=== PATIENT | female | born 1935 | race Hispanic/Latino ===

== ENCOUNTER 2022-10-09 10:58 | Emergency (ER) | payer OTHER ==
--- OUTSIDE RECORDS SUMMARY | 2022-10-09 11:02 | XMS REPORT | Continuity of Care Document ---
:1935 Author Organization [facility] t Address [address] [place] [address] Care Team Providers Name Role Phone Carter Oseguera Attending Clinician Unavailable Christie De La Paz Attending Clinician Unavailable Colin Fields Attending Clinician Unavailable Ruchi Sheets Admitting Clinician Unavailable Carter Oseguera Admitting Clinician Unavailable Payers Payer Name Policy Type Policy Number Effective Date Expiration Date S ource Problems This patient has no known problems. Allergies, Adverse Reactions, Alerts Allergy Allergy Status Severity Reaction(s) Onset Inactive Treating Comm ents Source Name Type Date Date Clinician No Known DA Active U 2021-0 [facility] -05 [facility] No Known DA Active U 2020-0 [facility] Allergie 09-15 [facility] No Known DA Active U 2020- [facility] Allergie 09-15 [facility] No Known DA Active U 2016-0 [facility] All[facility]ie - [facility] Medications This patient has no known medications. Procedures This patient has no known procedures. Encounters Start End Encounter Admission Attending Care Care Encounter Source Date/Time Date/Time Type Type Clinicians Facility Department ID 2020-09-18 Inpatient HCARG HC[facility] [id number] [facility] 21:24:09 90 [facility] 2020-09-15 Inpatient HCARG HCARG [id number] [facility] 00:25:15 69 [facility] 2022-07-06 2022-07-08 Inpatient EM Oumar HCARG [id number] [facility] 14:30:00 14:35:00 Carter 04 [facility] 2021-11-26 2021-11-26 Emergency EM Brain HCARG ER [id number] [facility] 21:55:00 23:34:00 Christie 54 [facility] n[facility]al[facility] 2021-11-26 2021-11-26 Emergency EM Brain HCARG HCARG [id number] [facility] 21:55:00 23:34:00 Christie [id number] [facility] nathalie [facility] 2021-01-10 2021-01-10 Emergency EM Donnie HCARG ER [id number] [facility] 21:26:00 23:11:00 Colin 15 [facility] Results Test Description Test Time Test Comments Results Result Comments Source CBC W/AUTO DIFF 2022-07-07 13:11:00 Test Item Value Reference Range Interpretation Comme nts WHITE BLOOD CELL (test code = 4.3 X10(3) 4.5-11.0 L WBC) RED BLOOD CELL (test code = 2.95 X10(6) 4.2-5.4 L RBC) HEMOGLOBIN (test code = HGB) 6.5 g/dL 12.5-16.0 LL VALUE EXCEEDS CRITICAL LEVEL. CRITICAL VALUE CALLEDTO AND CR ITICAL VALUE READ BACK BY JOEL MICHAEL,RN 1 215 07/07/22. Jared Nelson HEMATOCRIT (test code = HCT) 22.8 % 37.0-47.0 L MEAN CELL VOLUME (test code = 77.3 fl 78-100 L MCV) MEAN CELL HGB (test code = MCH) 22.0 pg 26.0-34.0 L MEAN CELL HGB CONCETRATION 28.5 g/dl 30.0-37.0 L (test code = MCHC) RED CELL DISTRIBUTION WIDTH 16.4 % 11.5-14.5 H (test code = RDW) PLATELET COUNT (test code = 231 X10(3) 150-350 N PLT) MEAN PLATELET VOLUME (test code 10.1 fl 8.7-11.4 N = MPV) NUCLEATED RBC % (test code = 0.0 % 0-0.2 N NRBC%) NUCLEATED RBC # (test code = 0.00 K/mm3 0.0-0.1 N NRBC#) SEGMENTED NEUTROPHILS (test 71 % 36-66 H code = SEG) BAND NEUTROPHIL (test code = 0 % 5-11 L BAND) LYMPHOCYTE (test code = LYMPH) 11 % 16-50 L MONOCYTE (test code = MON) 4 % 0-13 N EOSINOPHIL (test code = EOS) 14 % 0-4.5 H BASOPHIL (test code = BASO) 0 % 0-1.5 N BAND ABSOLUTE (test code = 0.00 X10(3) 0.0-0.7 N BAND#) NEUTROPHIL ABSOLUTE (test code 3.06 X10(3) 1.7-7.7 N = NEUTR#) LYMPH ABSOLUTE (test code = 0.47 X10(3) 0.7-4.0 L LYMPH#) MONOCYTE ABSOLUTE (test code = 0.17 X10(3) 0.0-0.89 N MON#) BASOPHIL ABSOLUTE (test code = 0.00 X10(3) BASO#) EOSINOPHIL ABSOLUTE (test code 0.60 X10(3) 0.0-0.6 N = EOS#) HYPOCHROMIA (test code = HYPO) 1+ NOT PRESENT ANISOCYTOSIS (test code = 1+ NOT PRESENT ANISO) MICROCYTOSIS (test code = MICR) 1+ NOT PRESENT PLATELET ESTIMATE (test code = NORMAL ADEQUATE PLTEST) OTHER SPECIMEN [id number] 17:35:00 Test Item Value Reference Range Interpretation Comments OTHER SPECIMEN TYPES (test code = OTH) RUN DATE: 07/06/22 [facility] LAB LIVE PAGE 1 RUN TIME: 1735 Specimen Inquiry RUN USER: INTERFACE PATIENT: CARLOS PALOMARES LOC: ERIKA U #: [id number] AGE/SX: 86/F ROOM: [facility] RE07/06/22REG DR: Porter Schaefer MD : 37 BED: B DIS: STATUS: ADM Zak TLOC: SPEC #: [id number] RECD: 07/06/22 STATUS: MIRTA [facility] #: [id number] ERMIAS: - SUBM DR: Lana Mora MD ENTERED: 07/06/22 SP TYPE: OTHER OTHR DR: Self Referred Ruchi Sheets APN, Hiram L MDORDERED: PATHOLOGY REVIE CODES: [id number] - BLOOD CELL, NOS COPIES TO: Self Referred Ruchi Sheets APN [address] [facility] [place] [address] [place] [address] Andrew Perez MD [address] [facility] [address] [place] [address] [place] [address] [place] [place] [address] PROCEDURES: PATHOLOGY REVIE (07/06/22-6548) TISSUES: B. BLOOD CELL, NOS - PERIPHERAL BLOOD MORPHOLOGY Signed SIGNATURE ON FILE Jared Mendez 07/06/22 1735 END OF REPORT CBC W/AUTO [id number] 14:23:00 Test Item Value Reference Range Interpretation Comments WHITE BLOOD CELL (test 5.1 X10(3) 4.5-11.0 N code = WBC) RED BLOOD CELL (test 2.78 X10(6) 4.2-5.4 L code = RBC) HEMOGLOBIN (test code = 6.1 g/dL 12.5-16.0 LL VALU E EXCEEDS HGB) CRITICAL LEVEL. CRITICAL VALUE CALLEDTO AND CRITICAL VALUE READ BACK BY MERISSA WOLFE RN 1681 07/06/22. Jeff Watters HEMATOCRIT (test code = 21.7 % 37.0-47.0 L HCT) MEAN CELL VOLUME (test 78.1 fl 78-100 N code = MCV) MEAN CELL HGB (test code 21.9 pg 26.0-34.0 L = MCH) MEAN CELL HGB 28.1 g/dl 30.0-37.0 L CONCETRATION (test code = MCHC) RED CELL DISTRIBUTION 16.3 % 11.5-14.5 H WIDTH (test code = RDW) PLATELET COUNT (test 268 X10(3) 150-350 N code = PLT) MEAN PLATELET VOLUME 10.8 fl 8.7-11.4 N (test code = MPV) NUCLEATED RBC % (test 0.0 % 0-0.2 N code = NRBC%) NUCLEATED RBC # (test 0.00 K/mm3 0.0-0.1 N code = NRBC#) GIANT PLATELETS (test PRESENT NORMAL code = PLTG) SEGMENTED NEUTROPHILS 79 % 36-66 H (test code = SEG) BAND NEUTROPHIL (test 1 % 5-11 L code = BAND) LYMPHOCYTE (test code = 15 % 16-50 L LYMPH) MONOCYTE (test code = 0 % 0-13 N MON) EOSINOPHIL (test code = 5 % 0-4.5 H EOS) BASOPHIL (test code = 0 % 0-1.5 N BASO) BAND ABSOLUTE (test code 0.05 X10(3) 0.0-0.7 N = BAND#) NEUTROPHIL ABSOLUTE 4.04 X10(3) 1.7-7.7 N (test code = NEUTR#) LYMPH ABSOLUTE (test 0.77 X10(3) 0.7-4.0 N code = LYMPH#) MONOCYTE ABSOLUTE (test 0.00 X10(3) 0.0-0.89 N code = MON#) BASOPHIL ABSOLUTE (test 0.00 X10(3) code = BASO#) EOSINOPHIL ABSOLUTE 0.26 X10(3) 0.0-0.6 N (test code = EOS#) HYPOCHROMIA (test code = 1+ NOT PRESENT HYPO) POIKILOCYTOSIS (test 1+ NOT PRESENT code = POIK) ANISOCYTOSIS (test code 1+ NOT PRESENT = ANISO) MICROCYTOSIS (test code 1+ NOT PRESENT = MICR) PLATELET ESTIMATE (test NORMAL ADEQUATE code = PLTEST) IMMATURE PLATELET [id number] 14:23:00 Test Item Value Reference Range Interpretation Comments IMMATURE PLATELET FRACTION (test code = 5.3 % 0.9-11.2 N IPF) RETIC COUNT (AUTOMATED)2022-07-06 14:23:00 Test Item Value Reference Range Interpretation Comments RETIC COUNT (AUTOMATED) (test code = 1.9 % 0.5-2.7 N RETICA) IMMATURE RETICULOCYTE [id number] 14:23:00 Test Item Value Reference Range Interpretation Comments IMMATURE RETICULOCYTE FRACTION (test 17.7 % 3.0-15.9 H code = IRF) RETICULOCYTE HGB [id number] 14:23:00 Test Item Value Reference Range Interpretation Comments RETICULOCYTE HGB EQUIVALENT (test 17.5 pg 28.2-35.7 L code = RETHE) SMEAR PERIPHERAL [id number] 14:23:00 Test Item Value Reference Range Interpretation Comments SMEAR PERIPHERAL BLOOD SEE PATHOLOGIST REPT (test code = BLDSM) BASIC METABOLIC [id number] 14:05:00 Test Item Value Reference Range Interpretation Comments SODIUM (test code = 141 mmol/L 136-145 N NA) POTASSIUM (test code 3.9 mmol/L 3.5-5.1 N = K) CHLORIDE (test code 111 mmol/L 98-107 H = CL) CARBON DIOXIDE (test 23 mmol/L 21-32 N code = CO2) GLUCOSE (test code = 112 mg/dL 70-100 H GLU) BLOOD UREA NITROGEN 13 mg/dL 7-18 N (test code = BUN) GLOMERULAR > 60.00 See_Comment Reporting units : FILTRATION RATE mL/min/1.73m \S\2 (test code = GFR) (Modified MDRD formula)REFEREN CE RANGE: > or = 6 0 ml/min/1.73M2IF PATIENT IS -AMER ICAN, MULTIPLY REPORT ED RESULT BY1.21.T he Glomerular Filt ration Rate is a calcu lated parameterbased on serum Creatinine, pat ient age and sex. GFR va luesless than 60 mL/min/ 1.73 square meters a re indicative ofCh ronic Kidney Disease. Values less than 15 mL/min/1.73squa re meters indicate Kidney failure. The calculation for GFR is based on the CK D-EPI (2020) calculat ion. This formulais race indifferent and is the recommended for spike for GFRby the Natio nal Kidney Foundati on for Adults.The GFR will not calculate if th e sex is unknown or if thepatient's ag e is <18 years. [Automat ed message] The sy stem which generated this result transmit jarad reference range : >=60. The reference r lourdes was not used to int erpret this result as normal/abnormal . CREATININE (test 0.68 mg/dL 0.51-0.95 N code = CREAT) CALCIUM (test code = 8.5 mg/dL 8.5-10.1 N CA) LIVER [id number] 14:05:00 Test Item Value Reference Range Interpretation Comments TOTAL PROTEIN (test code = PROT) 6.3 g/dl 6.4-8.2 L ALBUMIN (test code = ALB) 3.3 g/dl 3.4-5.0 L BILIRUBIN TOTAL (test code = BILT) 0.4 mg/dl 0.2-1.0 N BILIRUBIN DIRECT (test code = 0.13 mg/dl 0.0-0.4 N BILD) SGOT/AST (test code = AST) 16 U/L 15-37 N SGPT/ALT (test code = ALT) 19 U/L 12-78 N ALKALINE PHOSPHATASE TOTAL (test 89 U/L 50-136 N code = ALKP) [id number] 14:05:00 Test Item Value Reference Range Interpretation Comments LIPASE (test code = LIP) 89 U/L 73-393 N [id number] 14:05:00 Test Item Value Reference Range Interpretation Comments AMMONIA (test code = AMM) 33 umol/L 11-32 H TROPI (HIGH SENSITIVITY)2022-07-06 14:05:00 Test Item Value Reference Range Interpretation Comments TROPI (HIGH 7 pg/ml See_Comment N HIGH SENSITIVI TY TROPONIN SENSITIVITY) (test MEASUREME NT/RANGES--------- code = TROPI) ---------Ass ay : Units : No rmal : Risk Stratification : High : : (Detectable : Limit(Suggestiv e of : AboveTNIH : : L imit) : sequential test ing) : 99th : : : : % ile --------FEMALES : pg/ml : <= 3.0 : 3.1 - 54 : >54 --------MALES : pg/ml : <= 3.0 : 3.1 - 78 : >78 --------- [Auto mated message] The sy stem which generated this result transmitted ref erence range: <=3.0. T he reference range was not u sed to interpret this result as normal/abnormal . TOTAL IRON BINDING [id number] 14:05:00 Test Item Value Reference Range Interpretation Comments SERUM IRON (test code = IRON) 13 ug/dl 50-170 L TOTAL IRON BINDING CAPACITY (test 475 ug/dl 250-450 H code = TIBC) IRON SATURATION (test code = FESAT) 3 % 20-50 L PROTHROMBIN [id number] 13:48:00 Test Item Value Reference Interpretation Comments Range PROTHROMBIN TIME 10.4 SECONDS 8.7-12.1 N THERAPEUTIC LEVEL: 1.5 TO PATIENT (test code 1.9 TIMES NORMAL RANGE = PTP) INTERNATIONAL 1.0 Recommended erapeutic NORMAL RATIO (test PT Ratios For Oral code = INR) [facility] erapy. CONDITION INT'L NORMALIZED PT RATIO Prophylaxis of venous thrombosis 2.0 - 3.0in high risk medic al or surgicalpatient s, treatment of venousthrombosi s, prevention of e mbolism. Prevention of r ecurrent embolism, 2.5 - 3.5or treatment of pa tients with mechanical prosthetic heart valves. THROMBOPLASTIN TIME [id number] 13:48:00 Test Item Value Reference Range Interpretation Comments THROMBOPLASTIN TIME PARTIAL 24.3 seconds 22.8-34.4 N (test code = PTT) - XR CHEST 1 [id number] 13:42:00 [facility] : 1935 Sex: F [facility] Name: CARLOS PALOMARES [address] Phys: Lana Mora MD [place], [place] [address] : 1935 Age: 86 Sex: F Acct: [id number] Loc: [facility] PHONE #: [phone] Exam Date: 07/06/2022 Status: PRE ER FAX #: [phone] Radiology No: Unit No: [id number] Reason: Abd pain EXAMS: CPT CODE: [id number] XR CHEST 1 V 60038 Fluoro Time: DAP (Gy m2): Air Kerma (mGy): EXAM: - XRCHEST 1 V Location code:C3 HISTORY: Abd pain COMPARISON: 01/10/2021 FINDINGS: Single AP view of the chest is provided. Scarring at the right lung apex is again seen. Heart size and vascularity are within normal limits. The lungs are clear of focal consolidation. No effusion, pneumothorax, or acute osseous abnormality. IMPRESSION: 1. No radiographic evidence of acute cardiopulmonary process. at 1342 Reported and signed by: NATA URBINA M.D. CC: Ruchi Sheets; Andrew Perez MD; Lana Mora MD Technologist: Shanice Fields, RT (R) Transcribed Date/Time: 07/06/2022 (6612) [email or web address] Orig Print D/T: S: 07/06/2022 (9430) PAGE 1 Signed ReportCOVID 19 Asymptomatic IH [id number] 13:40:00 Test Item Value Reference Interpretation Comments Range COVID 19 Presumed NEGATIVE CHERELLE COVID-19 Asymptomatic IH AG Negative --------- ------Results (test code = are for the COVNONPUIAG) identification of QKFR-XyM-1jbjcb ocapsid protein antigen . Antigen is generallydet ectable in upper respir atory specimens durin g the acutephase of i nfection. Positive result s indicate the pr esenceof viral antigens, but clinical correl ation with patienthis tory and other diagnosti c information is necessary todetermine inf ection status. Negativ e results should be treat ed as presumptive and confirmed with a molecula r assay, if necessary fo r patientmanageme nt. Negative result s do not rule out COVID- 19 andshould not b e used as the sole basis for treatment orpat ient management deci sions, including infec tion controldecision s. Negative result s should be considered i n thecontext of a patient's recen t exposures, hist ory and thepresence of clinical signs and sympt oms consistent with COVID-19. The Cherelle SARS Antigen AMERICO is only for use under the Fooda nd Drug Administration' s Emergency Use Authorization. COMPREHENSIVE METABOLIC [id number] 22:57:00 Test Item Value Reference Range Interpretation Comments SODIUM (test code = 135 mmol/L 136-145 L NA) POTASSIUM (test code = 3.6 mmol/L 3.5-5.1 N K) CHLORIDE (test code = 103 mmol/L 98-107 N CL) CARBON DIOXIDE (test 21 mmol/L 21-32 N code = CO2) GLUCOSE (test code = 149 mg/dL 70-100 H GLU) BLOOD UREA NITROGEN 8 mg/dL 7-18 N (test code = BUN) GLOMERULAR FILTRATION 54.07 See_Comment L Report ing units: RATE (test code = GFR) mL/mi n/1.73m\S\2 (Modified MDRD formula)REFEREN CE RANGE: > or = 6 0 ml/min/1.73M2IF PATIENT IS -FLORA N, MULTIPLY REPORT ED RESULT BY1.21. [Automated mess age] The system [employer] generated this result transmitted ref erence range: >=60. Th e reference range was not used to int erpret this result as normal/abnormal . CREATININE (test code 0.98 mg/dl 0.55-1.02 N = CREAT) TOTAL PROTEIN (test 7.5 g/dl 6.4-8.2 N code = PROT) ALBUMIN (test code = 4.2 g/dl 3.4-5.0 N ALB) CALCIUM (test code = 9.3 mg/dL 8.5-10.1 N CA) BILIRUBIN TOTAL (test 0.6 mg/dL 0.2-1.0 N code = BILT) SGOT/AST (test code = 22 U/L 15-37 N AST) SGPT/ALT (test code = 27 U/L 12-78 N ALT) ALKALINE PHOSPHATASE 124 U/L 45-117 H TOTAL (test code = ALKP) CBC W/AUTO [id number] 22:42:00 Test Item Value Reference Range Interpretation Comments WHITE BLOOD CELL (test code = 6.9 X10(3) 4.5-11.0 N WBC) RED BLOOD CELL (test code = 4.21 X10(6) 4.2-5.4 N RBC) HEMOGLOBIN (test code = HGB) 10.4 g/dL 12.5-16.0 L HEMATOCRIT (test code = HCT) 34.3 % 37.0-47.0 L MEAN CELL VOLUME (test code = 81.5 fL 78-100 N MCV) MEAN CELL HGB (test code = MCH) 24.7 pg 26.0-34.0 L MEAN CELL HGB CONCETRATION 30.3 g/dl 30.0-37.0 N (test code = MCHC) RED CELL DISTRIBUTION WIDTH 17.2 % 11.5-14.5 H (test code = RDW) PLATELET COUNT (test code = 229 X10(3) 150-350 N PLT) MEAN PLATELET VOLUME (test code 10.1 fl 8.7-11.4 N = MPV) NEUTROPHIL % (test code = NT%) 64.1 % 36.0-66.0 N IMMATURE GRANULOCYTE % (test 0.3 % 0.0-2.0 N code = IG%) LYMPHOCYTE % (test code = LY%) 23.5 % 16-50 N MONOCYTE % (test code = MO%) 6.6 % 0.0-13.0 N EOSINOPHIL % (test code = EO%) 5.1 % 0.0-4.5 H BASOPHIL % (test code = BA%) 0.4 % 0.0-1.5 N NEUTROPHIL # (test code = NT#) 4.4 X10(3) 1.7-7.7 N IMMATURE GRANULOCYTE # (test 0.02 X10(3)uL 0.00-0.03 N code = IG#) LYMPHOCYTE # (test code = LY#) 1.6 X10(3) 1.0-4.8 N MONOCYTE # (test code = MO#) 0.5 X10(3) 0.0-0.89 N EOSINOPHIL # (test code = EO#) 0.4 X10(3) 0.0-0.6 N BASOPHIL # (test code = BA#) 0.0 X10(3) 0.0-0.2 N RBC MORPHOLOGY REQUIRED (test NO NORMAL code = RBCM) - CT C-SPINE W/O [id number] 22:42:00 [facility] 1935 [facility] 1935 Age/S: 85 / F [address] Unit #: [id number] Loc: [place], [place] [address] Phys: Colin Fields MD Acct: [id number] Dis Date:Status: REG ER PHONE #: [phone] Exam Date: 01/10/20212228 FAX #: [phone] Reason: FALL, HE ADACHE EXAMS: CPT CODE: [id number] CT C-SPINE W/O CONT 64281 EXAM: - CT HEAD/BRAIN W/O CONT HISTORY:Fall. Headache. TECHNIQUE: Axial tomograms through the brain were obtained without intravenous contrast. This exam was performed according to our departmental dose-optimization program, which includes automated exposure control, adjustment of the mA and/or kV according to patient size and/or use of iterative reconstruction technique. COMPARISON: None available time of interpretation. FINDINGS: There is no intracranial hemorrhage, or mass effect. The ventricular system and sulci are age-appropriate. The osseous structures and orbits, show no significant abnormalities. The visualized sinuses are relatively clear. The soft tissues are unremarkable. IMPRESSION: No evidence of acute intracranial abnormality or hemorrhage. EXAM: - CT C-SPINE W/O CONT HISTORY: Fall. Pain. TECHNIQUE: Axial tomogramsthrough the cervical spine were obtained without intravenous contrast. Sagittal and coronal reformatted images are provided. This exam was performed according to our departmental dose- optimization program, which includes automated exposure control, adjustment of the mA and/or kV according to patient size and/or use of iterative reconstruction technique. COMPARISON: None available time of interpretation. FINDINGS: Vertebral heights and alignment are maintained. No acute fracture or subluxation. The prevertebral soft tissues are within normal limits. PAGE 1 Signed Report (CONTINUED) Name: CARLOS PALOMARES [facility] : 1935 Age/S: 85 / F [address] [facility] Unit #: [id number] Loc: [place] [address] Phys: Colin Fields MD Acct: [id number] Dis Date: Status: REGER PHONE #: [phone] Exam Date: 01/10/20212228 FAX #: [phone] Reason: FALL, HEADACHE EXAMS: CPT CODE: [id number] CT C-SPINE W/O CONT 39058 (Continued) The visualized soft tissues of the neck show no significant abnormalities. 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 IMPRESSION: No acute osseous abnormality with other findings as above. at 2242 Reported and signed by: BRIGHT FERNANDEZ M.D. CC: Ruchi Sheets [employer]ER; Colin Fields MD Technologist:Felipa Mora RT (R) CT CTDI: 8.56 DLP: 188.09 Trnscb Date/Time: 01/10/2021 (2241) [email or web address] Orig Print D/T: S: 01/10/2021 (2245) PAGE 2 Signed Report- CT HEAD/BRAIN W/O [id number] 22:42:00[facility] : 1935 Sex: F Name: CARLOS PALOMARES [facility] : 1935 Age/S: 85 / F [address] Unit #: [id number] Loc: [place], [place] [address] Phys: Colin Fields MD Acct: [id number] Dis Date:Status: REG ER PHONE #: [phone] Exam Date: 01/10/20212228 FAX #: [phone] Reason: FALL, HE ADACHE EXAMS: CPT CODE: [id number] CT HEAD/BRAIN W/O CONT 54173 EXAM: - CT HEAD/BRAIN W/O CONT HISTORY: Fall. Headache. TECHNIQUE: Axial tomograms through the brain were obtained without intravenous contrast. This exam was performed according to our departmental dose-optimization program, which includes automated exposure control, adjustment of the mA and/or kV according to patient size and/or use ofiterative reconstruction technique. COMPARISON: None available time of interpretation. FINDINGS: There is no intracranial hemorrhage, or mass effect. The ventricular system and sulci are age-appropriate. The osseous structures and orbits, show no significant abnormalities. The visualized sinuses are relatively clear. The soft tissues are unremarkable. IMPRESSION: No evidence of acute intracranial abnormality or hemorrhage. EXAM: - CT C-SPINE W/O CONT HISTORY: Fall. Pain. TECHNIQUE: Axial tomograms through the cervical spine were obtained without intravenous contrast. Sagittal and coronal reformatted images are provided. This exam was performed according to our departmental dose-optimization program, which includes automated exposure control, adjustment of the mA and/or kV according to patientsize and/or use of iterative reconstruction technique. COMPARISON: None available time of interpretation. FINDINGS: Vertebral heights and alignment are maintained. No acute fracture or subluxation. Theprevertebral soft tissues are within normal limits. PAGE 1 Signed Report (CONTINUED) Name: CARLOS PALOMARES [facility] : 1935 Age/S: 85 / F [address] [facility] Unit #: [id number] Loc: [place] [address] Phys: Colin Fields MD Acct: [id number] Dis Date: Status: REG ER PHONE #: [phone] Exam Date: 01/10/20212228 FAX #: [phone] Reason: FALL, HEADACHE EXAMS: CPT CODE: [id number] CT HEAD/BRAIN W/O CONT 59030 (Continued) The visualized soft tissues of the neck show no significant abnormalities. 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 IMPRESSION: No acute osseous abnormality with other findings as above. at 2242 Reported and signed by: BRIGHT FERNANDEZ M.D. CC: Ruchi Sheets [employer]; Colin Fields MD Technologist:Felipa Mora RT (R) CT CTDI: 36.43 DLP: 582.91 Trnscb Date/Time: 01/10/2021 (2241) [email or web address] Orig Print D/T: S: 01/10/2021 (2245) PAGE 2 Signed Report- XR HAND 3+V [id number] 22:31:00 [facility] : 1935 Sex: F [facility] Name: CARLOS PALOMARES [address] Phys: Colin Fields MD [place], [place] [address] : 1935 Age: 85 Sex: F Acct: [id number] Loc: [facility] PHONE #: [phone] Exam Date: 01/10/2021 Status: REG ER FAX #: [phone] Radiology No: Unit No: [id number] Reason: F ALL, PAIN EXAMS: CPT CODE: [id number] XR HAND 3+[place] [address] Fluoro Time: DAP (Gy m2): Air Kerma (mGy): EXAM: - XR HAND 3+V RT HISTORY: Pain. COMPARISON: None available time of interpretation. FINDINGS: PA, oblique, and lateral view of the right hand is provided. There is no acute fracture or dislocation. Degenerative changes are present. Demineralization of the bones. IMPRESSION: No acute osseous abnormality. at 223 Reported and signed by: BRIGHT FERNANDEZ M.D. CC: Ruchi Sheets [employer]; Colin Fields MD Technologist: Yfn Allen, RT (R) CT (R) Transcribed Date/Time: 01/10/2021 (2230) [email or web address] Orig Print D/T: S: 01/10 (2233) PAGE 1 Signed Report- XR KNEE 3 V [id number] 22:28:00 [facility] : 1935 Sex: F [facility] Name: CARLOS PALOMARES [address] Phys: Colin Fields MD [place], [place] [address] : 1935 Age: 85 Sex: F Acct: [id number] Loc: [place] PHONE #: [phone] Exam Date: 01/10/2021 Status: REG ER FAX #: [phone] Radiology No: Unit No: [id number] Reason: FALL, PAIN EXAMS: CPT CODE: [id number] XR KNEE 3 V LT [id number] Fluoro Time: DAP (Gy m2): Air Kerma (mGy): EXAM: - XR KNEE 3 V LT HISTORY: Pain. COMPARISON: None available time of interpretation. FINDINGS:AP, oblique, and lateral view of the left knee is provided. There is no acute fracture or dislocation. Degenerative changes are present with marginal osteophytes and narrowing of the medial joint space. IMPRESSION: No acute osseous abnormality. Osteoarthritis. at 2228 Reported and signed by: BRIGHT FERNANDEZ M.D. CC: Ruchi Sheets [employer]; Colin Fields MD Technologist: Yfn Allen, RT (R) CT (R) Transcribed Date/Time: 01/10/2021 (2227) [email or web address] Orig Print D/T: S: 01/10/2021 (2230) PAGE 1 Signed Report- XR PELVIS /2 [id number] 22:26:00 [facility]: [facility] : 1935 Sex: F [facility] Name: CARLOS PALOMARES [address] Phys: Colin Fields MD [place], [place] [address] : 1935 Age: 85 Sex: F Acct: [id number] Loc: LINUS PHONE #: [phone] Exam Date: 01/10/2021 Status: REG ER FAX #: [phone] Radiology No: Unit No: [id number] Reason: FALL, PAIN EXAMS: CPT CODE: [id number] XR PELVIS 1/2 VIEWS 24703 Fluoro Time: DAP (Gy m2): Air Kerma (mGy): EXAM: - XR PELVIS 1 VIEW HISTORY: Fall. Pain. FINDINGS: Single AP view of the pelvis is provided. No acute fracture, dislocation, or other acute osseous abnormality is demonstrated. Limited exam. IMPRESSION: No definite acute abnormality. at 2226 Reported and signed by: BRIGHT FERNANDEZ M.D. CC: Ruchi Sheets [employer] RESOURCE TEACHER; Colin Fields MD Technologist: Kaycee Chua, RT (R) Transcribed Date/Time: 01/10/2021 (2225) [email or web address] Orig Print D/T: S: 01/10/2021 (2728) PAGE 1 Signed Report- XR CHEST 1 [id number] 22:25:00 [facility] : 1935 Sex: F [facility] Name: CARLOS PALOMARES [address] Phys: Colin Fields MD [place], [place] [address] : 1935 Age: 85 Sex: F Acct: [id number] Loc: LINUS PHONE #: [phone] Exam Date: 01/10/2021 Status: REG ER FAX #: [phone] Radiology No: Unit No: [id number] Reason: F ALL, PAIN EXAMS: CPT CODE: [id number] XR CHEST 1 V 21723 Fluoro Time: DAP (Gy m2): Air Kerma (mGy): EXAM: - XR CHEST 1 V HISTORY: Chest pain. COMPARISON: September 18, 2020. FINDINGS: Single AP view of the chest is provided. Heart size and vascularity are within normal limits. A small linear scarring in right apex as before. There is no evidence of a focal consolidation. There is no pleural effusion or pneumothorax. There is no definite acute osseous abnormality. There is no significant change compared to prior exam. IMPRESSION: No radiographic evidence of acute cardiopulmonary process. at 2225 Reported and signed by: MARINA FERNANDEZ M.D. 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 [facility] BASIC METABOLIC [id number] 05:49:00 Test Item Value Reference Range Interpretation Comments SODIUM (test code = 141 mmol/L 136-145 N NA) POTASSIUM (test code 3.6 mmol/L 3.5-5.1 N = K) CHLORIDE (test code = 111 mmol/L 98-107 H CL) CARBON DIOXIDE (test 25 mmol/L 21-32 N code = CO2) GLUCOSE (test code = 130 mg/dL 70-100 H GLU) BLOOD UREA NITROGEN 7 mg/dL 7-18 N (test code = BUN) GLOMERULAR FILTRATION > 60.00 See_Comment Report ing units: RATE (test code = mL/min/1.7 3m\S\2 GFR) (Modified MDRD formula)REFEREN CE RANGE: > or = 6 0 ml/min/1.73M2IF PATIENT IS -FLORA N, MULTIPLY REPORT ED RESULT BY1.21. [Automated mess age] The system [employer] generated this result transmitted ref erence range: >=60. Th e reference range was not used to int erpret this result as normal/abnormal . CREATININE (test code 0.75 mg/dL 0.51-0.95 N = CREAT) CALCIUM (test code = 9.2 mg/dL 8.5-10.1 N CA) LIPID PROFILE (CORONARY RISK)2020-09-19 05:49:00 Test Item Value Reference Range Interpretation Comments TRIGLYCERIDES (test code 133 mg/dL 30-150 N = TRIG) CHOLESTEROL (test code = 136 mg/dL 0-200 N CHOL) HDL CHOLESTEROL (test 46 mg/dL 40-59 N code = HDL) NON-HDL CHOLESTEROL (test 90 mg/dl <130 code = NHDL) LIPOPROTEIN LDL MJ (test 63 mg/dl <100 code = LDLC) LDL/HDL (test code = 1.4 Ratio LDL/HD L RATIO RISK LDL/HDL) ---- 3.22 Average 5 .03 Twice average [address] LIVER [id number] 05:49:00 Test Item Value Reference Range Interpretation Comments TOTAL PROTEIN (test code = PROT) 6.2 g/dl 6.4-8.2 L ALBUMIN (test code = ALB) 3.3 g/dl 3.4-5.0 L BILIRUBIN TOTAL (test code = BILT) 0.5 mg/dl 0.2-1.0 N BILIRUBIN DIRECT (test code = 0.12 mg/dl 0.0-0.4 N BILD) SGOT/AST (test code = AST) 17 U/L 15-37 N SGPT/ALT (test code = ALT) 39 U/L 12-78 N ALKALINE PHOSPHATASE TOTAL (test 85 U/L 50-136 N code = ALKP) [id number] 05:49:00 Test Item Value Reference Range Interpretation Comments MAGNESIUM (test code = MAG) 2.0 mg/dL 1.8-2.4 N [id number] 05:49:00 Test Item Value Reference Range Interpretation Comments TROPONIN-I (test <0.015 ng/ml 0.00-0.045 N GUIDELINES: 0.08 - 0.09 code = TROPI) Indeterminate0 .10 Risk Stratification Limit: Suggest sequent ial testing0.60 - 1 .50 AMI cutoff: Myocard ial Injury by WHO criteria BASIC METABOLIC [id number] 05:48:00 Test Item Value Reference Range Interpretation Comments SODIUM (test code = 141 mmol/L 136-145 N NA) POTASSIUM (test code 3.6 mmol/L 3.5-5.1 N = K) CHLORIDE (test code = 111 mmol/L 98-107 H CL) CARBON DIOXIDE (test 25 mmol/L 21-32 N code = CO2) GLUCOSE (test code = 130 mg/dL 70-100 H GLU) BLOOD UREA NITROGEN 7 mg/dL 7-18 N (test code = BUN) GLOMERULAR FILTRATION > 60.00 See_Comment Report ing units: RATE (test code = mL/min/1.7 3m\S\2 GFR) (Modified MDRD formula)REFEREN CE RANGE: > or = 6 0 ml/min/1.73M2IF PATIENT IS -FLORA N, MULTIPLY REPORT ED RESULT BY1.21. [Automated mess age] The system [employer] generated this result transmitted ref erence range: >=60. Th e reference range was not used to int erpret this result as normal/abnormal . CREATININE (test code 0.75 mg/dL 0.51-0.95 N = CREAT) CALCIUM (test code = 9.2 mg/dL 8.5-10.1 N CA) LIPID PROFILE (CORONARY RISK)2020-09-19 05:48:00 Test Item Value Reference Range Interpretation Comments TRIGLYCERIDES (test code = TRIG) 133 mg/dL 30-150 N CHOLESTEROL (test code = CHOL) 136 mg/dL 0-200 N HDL CHOLESTEROL (test code = HDL) mg/dL 40-59 NON-HDL CHOLESTEROL (test code = mg/dl <130 NHDL) LIPOPROTEIN LDL MJ (test code = mg/dl <100 LDLC) LDL/HDL (test code = LDL/HDL) Ratio LIVER [id number] 05:48:00 Test Item Value Reference Range Interpretation Comments TOTAL PROTEIN (test code = PROT) 6.2 g/dl 6.4-8.2 L ALBUMIN (test code = ALB) 3.3 g/dl 3.4-5.0 L BILIRUBIN TOTAL (test code = BILT) 0.5 mg/dl 0.2-1.0 N BILIRUBIN DIRECT (test code = 0.12 mg/dl 0.0-0.4 N BILD) SGOT/AST (test code = AST) 17 U/L 15-37 N SGPT/ALT (test code = ALT) 39 U/L 12-78 N ALKALINE PHOSPHATASE TOTAL (test 85 U/L 50-136 N code = ALKP) [id number] 05:48:00 Test Item Value Reference Range Interpretation Comments MAGNESIUM (test code = MAG) 2.0 mg/dL 1.8-2.4 N [id number] 05:48:00 Test Item Value Reference Range Interpretation Comments TROPONIN-I (test <0.015 ng/ml 0.00-0.045 N GUIDELINES: 0.08 - 0.09 code = TROPI) Indeterminate0 .10 Risk Stratification Limit: Suggest sequent ial testing0.60 - 1 .50 AMI cutoff: Myocard ial Injury by WHO criteria BASIC METABOLIC [id number] 05:47:00 Test Item Value Reference Range Interpretation Comments SODIUM (test code = 141 mmol/L 136-145 N NA) POTASSIUM (test code 3.6 mmol/L 3.5-5.1 N = K) CHLORIDE (test code = 111 mmol/L 98-107 H CL) CARBON DIOXIDE (test 25 mmol/L 21-32 N code = CO2) GLUCOSE (test code = 130 mg/dL 70-100 H GLU) BLOOD UREA NITROGEN 7 mg/dL 7-18 N (test code = BUN) GLOMERULAR FILTRATION > 60.00 See_Comment Report ing units: RATE (test code = mL/min/1.7 3m\S\2 GFR) (Modified MDRD formula)REFEREN CE RANGE: > or = 6 0 ml/min/1.73M2IF PATIENT IS -FLORA N, MULTIPLY REPORT ED RESULT BY1.21. [Automated mess age] The system [employer] generated this result transmitted ref erence range: >=60. Th e reference range was not used to int erpret this result as normal/abnormal . CREATININE (test code 0.75 mg/dL 0.51-0.95 N = CREAT) CALCIUM (test code = 9.2 mg/dL 8.5-10.1 N CA) LIPID PROFILE (CORONARY RISK)2020-09-19 05:47:00 Test Item Value Reference Range Interpretation Comments TRIGLYCERIDES (test code = TRIG) 133 mg/dL 30-150 N CHOLESTEROL (test code = CHOL) 136 mg/dL 0-200 N HDL CHOLESTEROL (test code = HDL) mg/dL 40-59 NON-HDL CHOLESTEROL (test code = mg/dl <130 NHDL) LIPOPROTEIN LDL MJ (test code = mg/dl <100 LDLC) LDL/HDL (test code = LDL/HDL) Ratio LIVER [id number] 05:47:00 Test Item Value Reference Range Interpretation Comments TOTAL PROTEIN (test code = PROT) g/dl 6.4-8.2 ALBUMIN (test code = ALB) 3.3 g/dl 3.4-5.0 L BILIRUBIN TOTAL (test code = BILT) mg/dl 0.2-1.0 BILIRUBIN DIRECT (test code = 0.12 mg/dl 0.0-0.4 N BILD) SGOT/AST (test code = AST) 17 U/L 15-37 N SGPT/ALT (test code = ALT) 39 U/L 12-78 N ALKALINE PHOSPHATASE TOTAL (test 85 U/L 50-136 N code = ALKP) [id number] 05:47:00 Test Item Value Reference Range Interpretation Comments MAGNESIUM (test code = MAG) 2.0 mg/dL 1.8-2.4 N [id number] 05:47:00 Test Item Value Reference Range Interpretation Comments TROPONIN-I (test <0.015 ng/ml 0.00-0.045 N GUIDELINES: 0.08 - 0.09 code = TROPI) Indeterminate0 .10 Risk Stratification Limit: Suggest sequent ial testing0.60 - 1 .50 AMI cutoff: Myocard ial Injury by WHO criteria BASIC METABOLIC [id number] 05:46:00 Test Item Value Reference Range Interpretation Comments SODIUM (test code = 141 mmol/L 136-145 N NA) POTASSIUM (test code 3.6 mmol/L 3.5-5.1 N = K) CHLORIDE (test code = 111 mmol/L 98-107 H CL) CARBON DIOXIDE (test 25 mmol/L 21-32 N code = CO2) GLUCOSE (test code = 130 mg/dL 70-100 H GLU) BLOOD UREA NITROGEN 7 mg/dL 7-18 N (test code = BUN) GLOMERULAR FILTRATION > 60.00 See_Comment Report ing units: RATE (test code = mL/min/1.7 3m\S\2 GFR) (Modified MDRD formula)REFEREN CE RANGE: > or = 6 0 ml/min/1.73M2IF PATIENT IS -FLORA N, MULTIPLY REPORT ED RESULT BY1.21. [Automated mess age] The system [employer] generated this result transmitted ref erence range: >=60. Th e reference range was not used to int erpret this result as normal/abnormal . CREATININE (test code 0.75 mg/dL 0.51-0.95 N = CREAT) CALCIUM (test code = 9.2 mg/dL 8.5-10.1 N CA) LIPID PROFILE (CORONARY RISK)2020-09-19 05:46:00 Test Item Value Reference Range Interpretation Comments TRIGLYCERIDES (test code = TRIG) mg/dL 30-150 CHOLESTEROL (test code = CHOL) mg/dL 0-200 HDL CHOLESTEROL (test code = HDL) mg/dL 40-59 NON-HDL CHOLESTEROL (test code = NHDL) mg/dl <130 LIPOPROTEIN LDL MJ (test code = LDLC) mg/dl <100 LDL/HDL (test code = LDL/HDL) Ratio LIVER [id number] 05:46:00 Test Item Value Reference Range Interpretation Comments TOTAL PROTEIN (test code = PROT) g/dl 6.4-8.2 ALBUMIN (test code = ALB) 3.3 g/dl 3.4-5.0 L BILIRUBIN TOTAL (test code = BILT) mg/dl 0.2-1.0 BILIRUBIN DIRECT (test code = BILD) mg/dl 0.0-0.4 SGOT/AST (test code = AST) 17 U/L 15-37 N SGPT/ALT (test code = ALT) U/L 12-78 ALKALINE PHOSPHATASE TOTAL (test U/L 50-136 code = ALKP) [id number] 05:46:00 Test Item Value Reference Range Interpretation Comments MAGNESIUM (test code = MAG) 2.0 mg/dL 1.8-2.4 N [id number] 05:46:00 Test Item Value Reference Range Interpretation Comments TROPONIN-I (test code = TROPI) ng/ml 0.00-0.045 BASIC METABOLIC [id number] 05:45:00 Test Item Value Reference Range Interpretation Comments SODIUM (test code = 141 mmol/L 136-145 N NA) POTASSIUM (test code 3.6 mmol/L 3.5-5.1 N = K) CHLORIDE (test code = 111 mmol/L 98-107 H CL) CARBON DIOXIDE (test 25 mmol/L 21-32 N code = CO2) GLUCOSE (test code = 130 mg/dL 70-100 H GLU) BLOOD UREA NITROGEN 7 mg/dL 7-18 N (test code = BUN) GLOMERULAR FILTRATION See_Comment [Auto mated message] RATE (test code = The system which GFR) generated this result transmitted ref erence range: >=60. Th e reference range was not used to int erpret this result as normal/abnormal . CREATININE (test code mg/dL 0.51-0.95 = CREAT) CALCIUM (test code = 9.2 mg/dL 8.5-10.1 N CA) LIPID PROFILE (CORONARY RISK)2020-09-19 05:45:00 Test Item Value Reference Range Interpretation Comments TRIGLYCERIDES (test code = TRIG) mg/dL 30-150 CHOLESTEROL (test code = CHOL) mg/dL 0-200 HDL CHOLESTEROL (test code = HDL) mg/dL 40-59 NON-HDL CHOLESTEROL (test code = NHDL) mg/dl <130 LIPOPROTEIN LDL MJ (test code = LDLC) mg/dl <100 LDL/HDL (test code = LDL/HDL) Ratio LIVER [id number] 05:45:00 Test Item Value Reference Range Interpretation Comments TOTAL PROTEIN (test code = PROT) g/dl 6.4-8.2 ALBUMIN (test code = ALB) 3.3 g/dl 3.4-5.0 L BILIRUBIN TOTAL (test code = BILT) mg/dl 0.2-1.0 BILIRUBIN DIRECT (test code = BILD) mg/dl 0.0-0.4 SGOT/AST (test code = AST) U/L 15-37 SGPT/ALT (test code = ALT) U/L 12-78 ALKALINE PHOSPHATASE TOTAL (test U/L 50-136 code = ALKP) [id number] 05:45:00 Test Item Value Reference Range Interpretation Comments MAGNESIUM (test code = MAG) 2.0 mg/dL 1.8-2.4 N [id number] 05:45:00 Test Item Value Reference Range Interpretation Comments TROPONIN-I (test code = TROPI) ng/ml 0.00-0.045 BASIC METABOLIC [id number] 05:44:00 Test Item Value Reference Range Interpretation Comments SODIUM (test code = 141 mmol/L 136-145 N NA) POTASSIUM (test code 3.6 mmol/L 3.5-5.1 N = K) CHLORIDE (test code = 111 mmol/L 98-107 H CL) CARBON DIOXIDE (test 25 mmol/L 21-32 N code = CO2) GLUCOSE (test code = mg/dL 70-100 GLU) BLOOD UREA NITROGEN 7 mg/dL 7-18 N (test code = BUN) GLOMERULAR FILTRATION See_Comment [Auto mated message] RATE (test code = The system which GFR) generated this result transmitted ref erence range: >=60. Th e reference range was not used to int erpret this result as normal/abnormal . CREATININE (test code mg/dL 0.51-0.95 = CREAT) CALCIUM (test code = 9.2 mg/dL 8.5-10.1 N CA) LIPID PROFILE (CORONARY RISK)2020-09-19 05:44:00 Test Item Value Reference Range Interpretation Comments TRIGLYCERIDES (test code = TRIG) mg/dL 30-150 CHOLESTEROL (test code = CHOL) mg/dL 0-200 HDL CHOLESTEROL (test code = HDL) mg/dL 40-59 NON-HDL CHOLESTEROL (test code = NHDL) mg/dl <130 LIPOPROTEIN LDL MJ (test code = LDLC) mg/dl <100 LDL/HDL (test code = LDL/HDL) Ratio LIVER [id number] 05:44:00 Test Item Value Reference Range Interpretation Comments TOTAL PROTEIN (test code = PROT) g/dl 6.4-8.2 ALBUMIN (test code = ALB) 3.3 g/dl 3.4-5.0 L BILIRUBIN TOTAL (test code = BILT) mg/dl 0.2-1.0 BILIRUBIN DIRECT (test code = BILD) mg/dl 0.0-0.4 SGOT/AST (test code = AST) U/L 15-37 SGPT/ALT (test code = ALT) U/L 12-78 ALKALINE PHOSPHATASE TOTAL (test U/L 50-136 code = ALKP) [id number] 05:44:00 Test Item Value Reference Range Interpretation Comments MAGNESIUM (test code = MAG) 2.0 mg/dL 1.8-2.4 N [id number] 05:44:00 Test Item Value Reference Range Interpretation Comments TROPONIN-I (test code = TROPI) ng/ml 0.00-0.045 BASIC METABOLIC [id number] 05:43:00 Test Item Value Reference Range Interpretation Comments SODIUM (test code = 141 mmol/L 136-145 N NA) POTASSIUM (test code 3.6 mmol/L 3.5-5.1 N = K) CHLORIDE (test code = 111 mmol/L 98-107 H CL) CARBON DIOXIDE (test mmol/L 21-32 code = CO2) GLUCOSE (test code = mg/dL 70-100 GLU) BLOOD UREA NITROGEN mg/dL 7-18 (test code = BUN) GLOMERULAR FILTRATION See_Comment [Auto mated message] RATE (test code = The system which GFR) generated this result transmitted ref erence range: >=60. Th e reference range was not used to int erpret this result as normal/abnormal . CREATININE (test code mg/dL 0.51-0.95 = CREAT) CALCIUM (test code = 9.2 mg/dL 8.5-10.1 N CA) LIPID PROFILE (CORONARY RISK)2020-09-19 05:43:00 Test Item Value Reference Range Interpretation Comments TRIGLYCERIDES (test code = TRIG) mg/dL 30-150 CHOLESTEROL (test code = CHOL) mg/dL 0-200 HDL CHOLESTEROL (test code = HDL) mg/dL 40-59 NON-HDL CHOLESTEROL (test code = NHDL) mg/dl <130 LIPOPROTEIN LDL MJ (test code = LDLC) mg/dl <100 LDL/HDL (test code = LDL/HDL) Ratio LIVER [id number] 05:43:00 Test Item Value Reference Range Interpretation Comments TOTAL PROTEIN (test code = PROT) g/dl 6.4-8.2 ALBUMIN (test code = ALB) g/dl 3.4-5.0 BILIRUBIN TOTAL (test code = BILT) mg/dl 0.2-1.0 BILIRUBIN DIRECT (test code = BILD) mg/dl 0.0-0.4 SGOT/AST (test code = AST) U/L 15-37 SGPT/ALT (test code = ALT) U/L 12-78 ALKALINE PHOSPHATASE TOTAL (test code U/L 50-136 = ALKP) [id number] 05:43:00 Test Item Value Reference Range Interpretation Comments MAGNESIUM (test code = MAG) mg/dL 1.8-2.4 [id number] 05:43:00 Test Item Value Reference Range Interpretation Comments TROPONIN-I (test code = TROPI) ng/ml 0.00-0.045 B-TYPE NATRIURETIC [id number] 05:42:00 Test Item Value Reference Range Interpretation Comments B-TYPE NATRIURETIC PEPTIDE (test 80.7 PG/ML 0-100 N code = BNP) [id number] 05:31:00 Test Item Value Reference Range Interpretation Comments GLYCOSYLATED 6.6 % <5.7 H SUGGESTED DIAG NOSIS HEMOGLOBIN (HA1C) INTERPRETA TION (test code = GLYHGB) ------- Nor mal: <5.7% Prediabet es: 5.7 - 6.4% Diabetic : >/= 6.5%* DUE TO ME THOD REVISION, REFER ENCE RANGE HAS BEEN UPDATED * ESTIMATED AVERAGE 143 MG/DL <126 GLUCOSE (test code = EAG) BASIC METABOLIC [id number] 05:29:00 Test Item Value Reference Range Interpretation Comments SODIUM (test code = 141 mmol/L 136-145 N NA) POTASSIUM (test code 3.6 mmol/L 3.5-5.1 N = K) CHLORIDE (test code = 111 mmol/L 98-107 H CL) CARBON DIOXIDE (test mmol/L 21-32 code = CO2) GLUCOSE (test code = mg/dL 70-100 GLU) BLOOD UREA NITROGEN mg/dL 7-18 (test code = BUN) GLOMERULAR FILTRATION See_Comment [Auto mated message] RATE (test code = The system which GFR) generated this result transmitted ref erence range: >=60. Th e reference range was not used to int erpret this result as normal/abnormal . CREATININE (test code mg/dL 0.51-0.95 = CREAT) CALCIUM (test code = mg/dL 8.5-10.1 CA) LIPID PROFILE (CORONARY RISK)2020-09-19 05:29:00 Test Item Value Reference Range Interpretation Comments TRIGLYCERIDES (test code = TRIG) mg/dL 30-150 CHOLESTEROL (test code = CHOL) mg/dL 0-200 HDL CHOLESTEROL (test code = HDL) mg/dL 40-59 NON-HDL CHOLESTEROL (test code = NHDL) mg/dl <130 LIPOPROTEIN LDL MJ (test code = LDLC) mg/dl <100 LDL/HDL (test code = LDL/HDL) Ratio LIVER [id number] 05:29:00 Test Item Value Reference Range Interpretation Comments TOTAL PROTEIN (test code = PROT) g/dl 6.4-8.2 ALBUMIN (test code = ALB) g/dl 3.4-5.0 BILIRUBIN TOTAL (test code = BILT) mg/dl 0.2-1.0 BILIRUBIN DIRECT (test code = BILD) mg/dl 0.0-0.4 SGOT/AST (test code = AST) U/L 15-37 SGPT/ALT (test code = ALT) U/L 12-78 ALKALINE PHOSPHATASE TOTAL (test code U/L 50-136 = ALKP) [id number] 05:29:00 Test Item Value Reference Range Interpretation Comments MAGNESIUM (test code = MAG) mg/dL 1.8-2.4 [id number] 05:29:00 Test Item Value Reference Range Interpretation Comments TROPONIN-I (test code = TROPI) ng/ml 0.00-0.045 CBC W/AUTO [id number] 05:23:00 Test Item Value Reference Range Interpretation Comments WHITE BLOOD CELL (test code = 6.6 X10(3) 4.5-11.0 N WBC) RED BLOOD CELL (test code = 3.93 X10(6) 4.2-5.4 L RBC) HEMOGLOBIN (test code = HGB) 11.9 g/dL 12.5-16.0 L HEMATOCRIT (test code = HCT) 36.2 % 37.0-47.0 L MEAN CELL VOLUME (test code = 92.1 fl 78-100 N MCV) MEAN CELL HGB (test code = MCH) 30.3 pg 26.0-34.0 N MEAN CELL HGB CONCETRATION 32.9 g/dl 30.0-37.0 N (test code = MCHC) RED CELL DISTRIBUTION WIDTH 13.8 % 11.5-14.5 N (test code = RDW) PLATELET COUNT (test code = 182 X10(3) 150-350 N PLT) MEAN PLATELET VOLUME (test code 10.8 fl 8.7-11.4 N = MPV) NEUTROPHIL % (test code = NT%) 72.1 % 36.0-66.0 H IMMATURE GRANULOCYTE % (test 0.5 % 0.0-2.0 N code = IG%) LYMPHOCYTE % (test code = LY%) 16.3 % 16.0-50.0 N MONOCYTE % (test code = MO%) 5.0 % 0.0-13.0 N EOSINOPHIL % (test code = EO%) 5.8 % 0.0-4.5 H BASOPHIL % (test code = BA%) 0.3 % 0.0-1.5 N NUCLEATED RBC % (test code = 0.0 % 0-0.2 N NRBC%) NEUTROPHIL # (test code = NT#) 4.74 X10(3) 1.70-7.70 N IMMATURE GRANULOCYTE # (test 0.03 X10(3)uL 0.00-0.03 N code = IG#) LYMPHOCYTE # (test code = LY#) 1.07 X10(3) 0.70-4.00 N MONOCYTE # (test code = MO#) 0.33 X10(3) 0.00-0.89 N EOSINOPHIL # (test code = EO#) 0.38 X10(3) 0.00-0.60 N BASOPHIL # (test code = BA#) 0.02 X10(3) 0.00-0.20 N NUCLEATED RBC # (test code = 0.00 K/mm3 0.0-0.1 N NRBC#) [id number] 23:07:00 Test Item Value Reference Range Interpretation Comments TROPONIN-I (test <0.015 ng/ml 0.00-0.045 N GUIDELINES: 0.08 - 0.09 code = TROPI) Indeterminate0 .10 Risk Stratification Limit: Suggest sequent ial testing0.60 - 1 .50 AMI cutoff: Myocard ial Injury by WHO criteria [id number] 20:35:00 Test Item Value Reference Range Interpretation Comments GLUBED (test code = 158 mg/dL 70-105 H Performe d by certified GLUBED) 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 COMMENT: A frontal chest radiograph was obtained at the bedside at 6:03 p.m., and compared to study obtained September 15, 2020. The lungs are clear and well-aerated. The cardiac silhouette, emely, and mediastinum are within normal l imits. The skeleton is intact, and the surrounding soft tissues are unremarkable. IMPRESSION: Unremarkable portable examination of the chest. t 1826 Reported and signed by: JEAN-PIERRE TATUM M.D. CC: Ruchi Sheets NP; Johnny Concepcion MD Technologist: Herbie Doran RT (R) Transcribed Date/Time: 09/18/2020 (1826) [email or web address] Orig Print D/T: S: 09/18/2020 (1830) PAGE 1 Signed ReportB-TYPE NATRIURETIC [id number] 17:54:00 Test Item Value Reference Range Interpretation Comments B-TYPE NATRIURETIC PEPTIDE (test 79.1 PG/ML 0-100 N code = BNP) DELAY DUE TO- ORDERS FOR MULTIPLE PATIENTSBASIC METABOLIC [id number] 17:53:00 Test Item Value Reference Range Interpretation Comments SODIUM (test code = 140 mmol/L 136-145 N NA) POTASSIUM (test code 4.0 mmol/L 3.5-5.1 N = K) CHLORIDE (test code = 110 mmol/L 98-107 H CL) CARBON DIOXIDE (test 27 mmol/L 21-32 N code = CO2) GLUCOSE (test code = 160 mg/dL 70-100 H GLU) BLOOD UREA NITROGEN 7 mg/dL 7-18 N (test code = BUN) GLOMERULAR FILTRATION > 60.00 See_Comment Report ing units: RATE (test code = mL/min/1.7 3m\S\2 GFR) (Modified MDRD formula)REFEREN CE RANGE: > or = 6 0 ml/min/1.73M2IF PATIENT IS -FLORA N, MULTIPLY REPORT ED RESULT BY08.14. [Automated mess age] The system [employer] generated this result transmitted ref erence range: >=60. Th e reference range was not used to int erpret this result as normal/abnormal . CREATININE (test code 0.83 mg/dL 0.51-0.95 N = CREAT) CALCIUM (test code = 9.6 mg/dL 8.5-10.1 N CA) DELAY DUE TO- ORDERS FOR MULTIPLE [id number] 17:53:00 Test Item Value Reference Range Interpretation Comments MAGNESIUM (test code = MAG) 2.1 mg/dL 1.8-2.4 N DELAY DUE TO- ORDERS FOR MULTIPLE PATIENTSTHYROID STIMULATING [id number] 17:53:00 Test Item Value Reference Range Interpretation Comments THYROID STIMULATING HORMONE 3.860 uIU/ml 0.358-3.740 H (test code = TSH) DELAY DUE TO- ORDERS FOR MULTIPLE [id number] 17:53:00 Test Item Value Reference Range Interpretation Comments TROPONIN-I (test <0.015 ng/ml 0.00-0.045 N GUIDELINES: 0.08 - 0.09 code = TROPI) Indeterminate0 .10 Risk Stratification Limit: Suggest sequent ial testing0.60 - 1 .50 AMI cutoff: Myocard ial Injury by WHO criteria DELAY DUE TO- ORDERS FOR MULTIPLE PATIENTSBASIC METABOLIC [id number] 17:48:00 Test Item Value Reference Range Interpretation Comments SODIUM (test code = 140 mmol/L 136-145 N NA) POTASSIUM (test code 4.0 mmol/L 3.5-5.1 N = K) CHLORIDE (test code = 110 mmol/L 98-107 H CL) CARBON DIOXIDE (test 27 mmol/L 21-32 N code = CO2) GLUCOSE (test code = 160 mg/dL 70-100 H GLU) BLOOD UREA NITROGEN 7 mg/dL 7-18 N (test code = BUN) GLOMERULAR FILTRATION > 60.00 See_Comment Report ing units: RATE (test code = mL/min/1.7 3m\S\2 GFR) (Modified MDRD formula)REFEREN CE RANGE: > or = 6 0 ml/min/1.73M2IF PATIENT IS -FLORA N, MULTIPLY REPORT ED RESULT BY1.21. [Automated mess age] The system [employer] generated this result transmitted ref erence range: >=60. Th e reference range was not used to int erpret this result as normal/abnormal . CREATININE (test code 0.83 mg/dL 0.51-0.95 N = CREAT) CALCIUM (test code = 9.6 mg/dL 8.5-10.1 N CA) DELAY DUE TO- ORDERS FOR MULTIPLE [id number] 17:48:00 Test Item Value Reference Range Interpretation Comments MAGNESIUM (test code = MAG) 2.1 mg/dL 1.8-2.4 N DELAY DUE TO- ORDERS FOR MULTIPLE PATIENTSTHYROID STIMULATING [id number] 17:48:00 Test Item Value Reference Range Interpretation Comments THYROID STIMULATING HORMONE (test uIU/ml 0.358-3.740 code = TSH) DELAY DUE TO- ORDERS FOR MULTIPLE [id number] 17:48:00 Test Item Value Reference Range Interpretation Comments TROPONIN-I (test <0.015 ng/ml 0.00-0.045 N GUIDELINES: 0.08 - 0.09 code = TROPI) Indeterminate0 .10 Risk Stratification Limit: Suggest sequent ial testing0.60 - 1 .50 AMI cutoff: Myocard ial Injury by WHO criteria DELAY DUE TO- ORDERS FOR MULTIPLE PATIENTSBASIC METABOLIC [id number] 17:43:00 Test Item Value Reference Range Interpretation Comments SODIUM (test code = 140 mmol/L 136-145 N NA) POTASSIUM (test code 4.0 mmol/L 3.5-5.1 N = K) CHLORIDE (test code = 110 mmol/L 98-107 H CL) CARBON DIOXIDE (test 27 mmol/L 21-32 N code = CO2) GLUCOSE (test code = 160 mg/dL 70-100 H GLU) BLOOD UREA NITROGEN 7 mg/dL 7-18 N (test code = BUN) GLOMERULAR FILTRATION > 60.00 See_Comment Report ing units: RATE (test code = mL/min/1.7 3m\S\2 GFR) (Modified MDRD formula)REFEREN CE RANGE: > or = 6 0 ml/min/1.73M2IF PATIENT IS -FLORA N, MULTIPLY REPORT ED RESULT BY1.21. [Automated mess age] The system [employer] generated this result transmitted ref erence range: >=60. Th e reference range was not used to int erpret this result as normal/abnormal . CREATININE (test code 0.83 mg/dL 0.51-0.95 N = CREAT) CALCIUM (test code = 9.6 mg/dL 8.5-10.1 N CA) DELAY DUE TO- ORDERS FOR MULTIPLE [id number] 17:43:00 Test Item Value Reference Range Interpretation Comments MAGNESIUM (test code = MAG) 2.1 mg/dL 1.8-2.4 N DELAY DUE TO- ORDERS FOR MULTIPLE PATIENTSTHYROID STIMULATING [id number] 17:43:00 Test Item Value Reference Range Interpretation Comments THYROID STIMULATING HORMONE (test uIU/ml 0.358-3.740 code = TSH) DELAY DUE TO- ORDERS FOR MULTIPLE [id number] 17:43:00 Test Item Value Reference Range Interpretation Comments TROPONIN-I (test code = TROPI) ng/ml 0.00-0.045 DELAY DUE TO- ORDERS FOR MULTIPLE PATIENTSBASIC METABOLIC [id number] 17:39:00 Test Item Value Reference Range Interpretation Comments SODIUM (test code = 140 mmol/L 136-145 N NA) POTASSIUM (test code 4.0 mmol/L 3.5-5.1 N = K) CHLORIDE (test code = 110 mmol/L 98-107 H CL) CARBON DIOXIDE (test 27 mmol/L 21-32 N code = CO2) GLUCOSE (test code = 160 mg/dL 70-100 H GLU) BLOOD UREA NITROGEN 7 mg/dL 7-18 N (test code = BUN) GLOMERULAR FILTRATION See_Comment [Auto mated message] RATE (test code = The system which GFR) generated this result transmitted ref erence range: >=60. Th e reference range was not used to int erpret this result as normal/abnormal . CREATININE (test code mg/dL 0.51-0.95 = CREAT) CALCIUM (test code = 9.6 mg/dL 8.5-10.1 N CA) DELAY DUE TO- ORDERS FOR MULTIPLE [id number] 17:39:00 Test Item Value Reference Range Interpretation Comments MAGNESIUM (test code = MAG) 2.1 mg/dL 1.8-2.4 N DELAY DUE TO- ORDERS FOR MULTIPLE PATIENTSTHYROID STIMULATING [id number] 17:39:00 Test Item Value Reference Range Interpretation Comments THYROID STIMULATING HORMONE (test uIU/ml 0.358-3.740 code = TSH) DELAY DUE TO- ORDERS FOR MULTIPLE [id number] 17:39:00 Test Item Value Reference Range Interpretation Comments TROPONIN-I (test code = TROPI) ng/ml 0.00-0.045 DELAY DUE TO- ORDERS FOR MULTIPLE PATIENTSBASIC METABOLIC [id number] 17:38:00 Test Item Value Reference Range Interpretation Comments SODIUM (test code = 140 mmol/L 136-145 N NA) POTASSIUM (test code 4.0 mmol/L 3.5-5.1 N = K) CHLORIDE (test code = 110 mmol/L 98-107 H CL) CARBON DIOXIDE (test mmol/L 21-32 code = CO2) GLUCOSE (test code = mg/dL 70-100 GLU) BLOOD UREA NITROGEN mg/dL 7-18 (test code = BUN) GLOMERULAR FILTRATION See_Comment [Auto mated message] RATE (test code = The system which GFR) generated this result transmitted ref erence range: >=60. Th e reference range was not used to int erpret this result as normal/abnormal . CREATININE (test code mg/dL 0.51-0.95 = CREAT) CALCIUM (test code = 9.6 mg/dL 8.5-10.1 N CA) DELAY DUE TO- ORDERS FOR MULTIPLE [id number] 17:38:00 Test Item Value Reference Range Interpretation Comments MAGNESIUM (test code = MAG) mg/dL 1.8-2.4 DELAY DUE TO- ORDERS FOR MULTIPLE PATIENTSTHYROID STIMULATING [id number] 17:38:00 Test Item Value Reference Range Interpretation Comments THYROID STIMULATING HORMONE (test uIU/ml 0.358-3.740 code = TSH) DELAY DUE TO- ORDERS FOR MULTIPLE [id number] 17:38:00 Test Item Value Reference Range Interpretation Comments TROPONIN-I (test code = TROPI) ng/ml 0.00-0.045 DELAY DUE TO- ORDERS FOR MULTIPLE PATIENTSBASIC METABOLIC [id number] 17:37:00 Test Item Value Reference Range Interpretation Comments SODIUM (test code = 140 mmol/L 136-145 N NA) POTASSIUM (test code 4.0 mmol/L 3.5-5.1 N = K) CHLORIDE (test code = 110 mmol/L 98-107 H CL) CARBON DIOXIDE (test mmol/L 21-32 code = CO2) GLUCOSE (test code = mg/dL 70-100 GLU) BLOOD UREA NITROGEN mg/dL 7-18 (test code = BUN) GLOMERULAR FILTRATION See_Comment [Auto mated message] RATE (test code = The system which GFR) generated this result transmitted ref erence range: >=60. Th e reference range was not used to int erpret this result as normal/abnormal . CREATININE (test code mg/dL 0.51-0.95 = CREAT) CALCIUM (test code = mg/dL 8.5-10.1 CA) DELAY DUE TO- ORDERS FOR MULTIPLE [id number] 17:37:00 Test Item Value Reference Range Interpretation Comments MAGNESIUM (test code = MAG) mg/dL 1.8-2.4 DELAY DUE TO- ORDERS FOR MULTIPLE PATIENTSTHYROID STIMULATING [id number] 17:37:00 Test Item Value Reference Range Interpretation Comments THYROID STIMULATING HORMONE (test uIU/ml 0.358-3.740 code = TSH) DELAY DUE TO- ORDERS FOR MULTIPLE [id number] 17:37:00 Test Item Value Reference Range Interpretation Comments TROPONIN-I (test code = TROPI) ng/ml 0.00-0.045 DELAY DUE TO- ORDERS FOR MULTIPLE PATIENTSCBC W/AUTO [id number] 17:28:00 Test Item Value Reference Range Interpretation Comments WHITE BLOOD CELL (test code = 5.9 X10(3) 4.5-11.0 N WBC) RED BLOOD CELL (test code = 4.23 X10(6) 4.2-5.4 N RBC) HEMOGLOBIN (test code = HGB) 13.1 g/dL 12.5-16.0 N HEMATOCRIT (test code = HCT) 40.1 % 37.0-47.0 N MEAN CELL VOLUME (test code = 94.8 fl 78-100 N MCV) MEAN CELL HGB (test code = MCH) 31.0 pg 26.0-34.0 N MEAN CELL HGB CONCETRATION 32.7 g/dl 30.0-37.0 N (test code = MCHC) RED CELL DISTRIBUTION WIDTH 14.0 % 11.5-14.5 N (test code = RDW) PLATELET COUNT (test code = 208 X10(3) 150-350 N PLT) MEAN PLATELET VOLUME (test code 10.6 fl 8.7-11.4 N = MPV) NEUTROPHIL % (test code = NT%) 65.0 % 36.0-66.0 N IMMATURE GRANULOCYTE % (test 0.5 % 0.0-2.0 N code = IG%) LYMPHOCYTE % (test code = LY%) 22.2 % 16.0-50.0 N MONOCYTE % (test code = MO%) 5.1 % 0.0-13.0 N EOSINOPHIL % (test code = EO%) 6.9 % 0.0-4.5 H BASOPHIL % (test code = BA%) 0.3 % 0.0-1.5 N NUCLEATED RBC % (test code = 0.0 % 0-0.2 N NRBC%) NEUTROPHIL # (test code = NT#) 3.83 X10(3) 1.70-7.70 N IMMATURE GRANULOCYTE # (test 0.03 X10(3)uL 0.00-0.03 N code = IG#) LYMPHOCYTE # (test code = LY#) 1.31 X10(3) 0.70-4.00 N MONOCYTE # (test code = MO#) 0.30 X10(3) 0.00-0.89 N EOSINOPHIL # (test code = EO#) 0.41 X10(3) 0.00-0.60 N BASOPHIL # (test code = BA#) 0.02 X10(3) 0.00-0.20 N NUCLEATED RBC # (test code = 0.00 K/mm3 0.0-0.1 N NRBC#) DELAY DUE TO- ORDERS FOR MULTIPLE PATIENTS- CT ABD PELVIS [id number] 04:[facility]00[facility] : 1935 Sex: F Name: CARLOS PALOMARES FSED : 1935 Age/S: 85 / F [address] Unit #: [id number] Loc: [place] [address] Phys: Christie De La Paz Acct: [id number] Dis Date: Status: REG ER PHONE #: Exam Date: 09/15/2020 7852 FAX #: Reason: ABDOMINAL PAIN EXAMS: CPT CODE: [id number] CT ABD PELVIS W/CONT 49240 EXAM: - CT ABD PELVIS W/CONT LOCATION: H61 CLINICAL HISTORY/INDICATION: ABDOMINALPAIN COMPARISON: CT abdomen pelvis 07/14/2014 TECHNIQUE: Axial CT images of the abdomen and pelvis were obtained from the diaphragm to the lesser trochanter with IV contrast administration. Coronal andsagittal reformations were reconstructed from the axial data set. Postcontrast images were acquired in the portal venous phase This examination was performed according to our departmental dose optimization program, which includes automated exposure control, adjustment of the mA and/or kV according to patient size, and/or use of iterative reconstruction technique. FINDINGS: LOWER THORAX: Clear. LIVER:There is mildly enlarged and measures 20 cm in craniocaudal dimension. No hepatic mass. There is mild intrahepatic biliary dilatation. GALLBLADDER/BILIARY SYSTEM: Status post cholecystectomy. There is dilatation of the common bile duct up to 2.1 cm. Common bile duct previously measures up to 1.6 cm. There is also mild hepatic biliary dilatation. PANCREAS: Unremarkable. SPLEEN: No splenomegaly or focal lesions. . ADRENALS: 7 mm nodule in the right adrenal gland and 10 mm nodule in left adrenal glandare stable. KIDNEYS/URETERS: No hydronephrosis, stones, or solid mass lesions. VESSELS: No AAA. Patent portal vein. LYMPH NODES: No lymphadenopathy. PERITONEUM / RETROPERITONEUM: No free air or fluid. PAGE 1 Signed Report (CONTINUED) Name: CARLOS PALOMARES FSED : 1935 Age/S: 85 / F [address] Unit #: [id number] Loc: [place] [address] Phys: Christie De La Paz Acct: [id number] Dis Date: Status: REG ER PHONE #: Exam Date: 09/15/2020 8061 FAX #: Reason: ABDOMINAL PAIN EXAMS: CPT CODE: [id number] CT ABD PELVIS W/CONT 25176 (Continued) GI TRACT: Small bowel and colonare not dilated. No bowel wall thickening. The appendix is not well- visualized. However, there are no secondary signs of appendicitis demonstrated in the right lower quadrant. GENITOURINARY ORGANS: Hysterectomy. PELVIC FREE FLUID/FLUID COLLECTION: None. URINARY BLADDER: A few air foci in the urinary b ladder is likely related to recent visualization. There is no wall thickening. EXTERNAL SOFT TISSUE:No abnormalities. BONES: Regional osseous structures are intact. Mild lumbar spine spondylosis. IMPRESSION: 1. Cholecystectomy with dilatation of the common bile duct 2.1 cm and mild intrahepatic biliary dilatation. Common bile duct dilatation appears slightly increased from 1.[address] Correlation with bilirubin is recommended. Consider MRCP evaluation to exclude choledocholithiasis. 2. Otherwise, no acute abnormality demonstrated. t 410 Reported and signed by: Jalen Booth MD CC: Ruchi Sheets [employer]; Christie Winslow Technologist:Oc Faria, RT (R) CT (R) CTDI: 8.53 DLP: 410.61 Trnscb Date/Time: 09/15/2020 (410) [email or web address] Orig Print D/T: S: 09/15/2020 (041) PAGE 2 Signed ReportCOMPREHENSIVE METABOLIC [id number] 03:27:00 Test Item Value Reference Range Interpretation Comments SODIUM (test code = 143 mmol/L 136-145 N NA) POTASSIUM (test code = 3.6 mmol/L 3.5-5.1 N K) CHLORIDE (test code = 106 mmol/L 98-107 N CL) CARBON DIOXIDE (test 25 mmol/L 21-32 N code = CO2) GLUCOSE (test code = 106 mg/dL 70-100 H GLU) BLOOD UREA NITROGEN 8 mg/dL 7-18 N (test code = BUN) GLOMERULAR FILTRATION > 60.00 See_Comment Report ing units: RATE (test code = GFR) mL/mi n/1.73m\S\2 (Modified MDRD formula)REFEREN CE RANGE: > or = 6 0 ml/min/1.73M2IF PATIENT IS -FLORA N, MULTIPLY REPORT ED RESULT BY08.14. [Automated mess age] The system [employer] generated this result transmitted ref erence range: >=60. Th e reference range was not used to int erpret this result as normal/abnormal . CREATININE (test code 0.79 mg/dl 0.55-1.02 N = CREAT) TOTAL PROTEIN (test 6.5 g/dl 6.4-8.2 N code = PROT) ALBUMIN (test code = 3.8 g/dl 3.4-5.0 N ALB) CALCIUM (test code = 9.0 mg/dL 8.5-10.1 N CA) BILIRUBIN TOTAL (test 0.6 mg/dL 0.2-1.0 N code = BILT) SGOT/AST (test code = 182 U/L 15-37 H AST) SGPT/ALT (test code = 100 U/L 12-78 H ALT) ALKALINE PHOSPHATASE 92 U/L 45-117 N TOTAL (test code = ALKP) [id number] 03:27:00 Test Item Value Reference Range Interpretation Comments TROPONIN-I (test <0.017 ng/ml 0.00-0.045 N GUIDELINES: 0.08 - 0.09 code = TROPI) Indeterminate0 .10 Risk Stratification Limit: Suggest sequent ial testing0.60 - 1 .50 AMI cutoff: Myocard ial Injury by WHO criteria URINALYSIS W REFLEX [id number] 02:59:00 Test Item Value Reference Range Interpretation Comments UA COLOR (test code = COLU) YELLOW YELLOW UA APPEARANCE (test code = CLEAR CLEAR APPU) UA GLUCOSE DIPSTICK (test code NEGATIVE mg/dl NORMAL = DGLUU) UA BILIRUBIN DIPSTICK (test NEGATIVE mg/dl NEGATIVE code = BILU) UA KETONE DIPSTICK (test code NEGATIVE mg/dl NEGATIVE = KETU) UA SPECIFIC GRAVITY (test code 1.010 1.001-1.035 N = SGU) UA BLOOD DIPSTICK (test code = NEGATIVE /UL NEGATIVE REEMA) UA PH DIPSTICK (test code = 7.0 4.6-8.0 MUKESH) UA PROTEIN DIPSTICK (test code NEGATIVE mg/dl NEGATIVE = PROU) UA UROBILINIOGEN DIPSTICK 0.2 mg/dl NORMAL (test code = URO) UA NITRITE DIPSTICK (test code NEGATIVE NEGATIVE = PROSPER) UA LEUKOCYTE ESTERASE DIPSTICK SMALL /UL NEGATIVE (test code = LEUU) UA COMMENT (test code = COMU) CLN CATCH UA MICROSCOPIC NEEDED? (test Y= DO UA MICRO code = UAMICRO) UA [id number] 02:59:00 Test Item Value Reference Range Interpretation Comments UA WBC (test code = WBCU) 0-2 #/hpf 0-5 UA RBC (test code = RBCU) 0-2 #/hpf 0-5 UA EPITHELIAL CELLS (test code = NONE /hpf NEG,FEW EPIU) UA BACTERIA (test code = BACU) NONE /hpf NEGATIVE [id number] 02:10:00 Test Item Value Reference Range Interpretation Comments TROPONIN-I (test <0.017 ng/ml 0.00-0.045 N GUIDELINES: 0.08 - 0.09 code = TROPI) Indeterminate0 .10 Risk Stratification Limit: Suggest sequent ial testing0.60 - 1 .50 AMI cutoff: Myocard ial Injury by WHO criteria - XR CHEST 1 [id number] 02:01:00 [facility] : 1935 Sex: F FAX: Ruchi Sheets NP [phone] [place]: St: PRE FAX: Christie Garnica Name: CARLOS PALOMARES FSED : 1935 Age/S: 85/F [address] Unit #: [id number] Loc: [place] [address] Phys: Christie De La Paz Acct: [id number] Dis Date: Status: PRE ER PHONE #: Exam Date: 09/15/2020 0148 FAX #: Reason: chest pain EXAMS: CPT CODE: [id number] XR CHEST 1 V 05694 DICTATION LOCATION: H48 HISTORY: Female, 85 years of age with chest pain EXAM: CHEST X-RAY, ONE VIEW COMPARISON: 07/17/2014 COMMENT: Frontal view of the chest is provided. Linear scarring again seen in the right apex. No focal infiltrate, consolidation, mass lesion, or effusion is seen. Cardiac silhouette is enlarged and calcified plaque noted in aorta. No acute bony abnormalities. IMPRESSION: Scarring right apex. No acute infiltrate or effusion. at 0201 Reported and signed by: EMILE ROBLERO M.D. CC: Ruchi Sheets [employer]; Christie Winslow Technologist:Oc Faria RT (R) CT (R) Trnarmajo Date/Time/By: 09/15/2020 (020) : By: Krystal Orig Print D/T: S: 09/15/2020 (5294) PAGE 1 Signed ReportURINALYSIS W REFLEX [id number] 01:56:00 Test Item Value Reference Range Interpretation Comments UA COLOR (test code = COLU) YELLOW YELLOW UA APPEARANCE (test code = CLEAR CLEAR APPU) UA GLUCOSE DIPSTICK (test code NEGATIVE mg/dl NORMAL = DGLUU) UA BILIRUBIN DIPSTICK (test NEGATIVE mg/dl NEGATIVE code = BILU) UA KETONE DIPSTICK (test code NEGATIVE mg/dl NEGATIVE = KETU) UA SPECIFIC GRAVITY (test code 1.010 1.001-1.035 N = SGU) UA BLOOD DIPSTICK (test code = NEGATIVE /UL NEGATIVE REEMA) UA PH DIPSTICK (test code = 7.0 4.6-8.0 MUKESH) UA PROTEIN DIPSTICK (test code NEGATIVE mg/dl NEGATIVE = PROU) UA UROBILINIOGEN DIPSTICK 0.2 mg/dl NORMAL (test code = URO) UA NITRITE DIPSTICK (test code NEGATIVE NEGATIVE = PROSPER) UA LEUKOCYTE ESTERASE DIPSTICK SMALL /UL NEGATIVE (test code = LEUU) UA COMMENT (test code = COMU) CLN CATCH UA MICROSCOPIC NEEDED? (test Y= DO UA MICRO code = UAMICRO) URINALYSIS W REFLEX [id number] 01:56:00 Test Item Value Reference Range Interpretation Comments UA COLOR (test code = COLU) YELLOW YELLOW UA APPEARANCE (test code = CLEAR CLEAR APPU) UA GLUCOSE DIPSTICK (test code NEGATIVE mg/dl NORMAL = DGLUU) UA BILIRUBIN DIPSTICK (test NEGATIVE mg/dl NEGATIVE code = BILU) UA KETONE DIPSTICK (test code NEGATIVE mg/dl NEGATIVE = KETU) UA SPECIFIC GRAVITY (test code 1.010 1.001-1.035 N = SGU) UA BLOOD DIPSTICK (test code = NEGATIVE /UL NEGATIVE REEMA) UA PH DIPSTICK (test code = 7.0 4.6-8.0 MUKESH) UA PROTEIN DIPSTICK (test code NEGATIVE mg/dl NEGATIVE = PROU) UA UROBILINIOGEN DIPSTICK 0.2 mg/dl NORMAL (test code = URO) UA NITRITE DIPSTICK (test code NEGATIVE NEGATIVE = PROSPER) UA LEUKOCYTE ESTERASE DIPSTICK SMALL /UL NEGATIVE (test code = LEUU) UA COMMENT (test code = COMU) CLN CATCH UA MICROSCOPIC NEEDED? (test Y= DO UA MICRO code = UAMICRO) CBC W/AUTO [id number] 01:50:00 Test Item Value Reference Range Interpretation Comments WHITE BLOOD CELL (test code = 6.5 X10(3) 4.5-11.0 N WBC) RED BLOOD CELL (test code = 4.18 X10(6) 4.2-5.4 L RBC) HEMOGLOBIN (test code = HGB) 12.7 g/dL 12.5-16.0 N HEMATOCRIT (test code = HCT) 38.4 % 37.0-47.0 N MEAN CELL VOLUME (test code = 91.9 fL 78-100 N MCV) MEAN CELL HGB (test code = MCH) 30.4 pg 26.0-34.0 N MEAN CELL HGB CONCETRATION 33.1 g/dl 30.0-37.0 N (test code = MCHC) RED CELL DISTRIBUTION WIDTH 13.5 % 11.5-14.5 N (test code = RDW) PLATELET COUNT (test code = 151 X10(3) 150-350 N PLT) MEAN PLATELET VOLUME (test code 10.5 fl 8.7-11.4 N = MPV) NEUTROPHIL % (test code = NT%) 63.1 % 36.0-66.0 N IMMATURE GRANULOCYTE % (test 0.3 % 0.0-2.0 N code = IG%) LYMPHOCYTE % (test code = LY%) 25.2 % 16-50 N MONOCYTE % (test code = MO%) 6.0 % 0.0-13.0 N EOSINOPHIL % (test code = EO%) 5.2 % 0.0-4.5 H BASOPHIL % (test code = BA%) 0.2 % 0.0-1.5 N NEUTROPHIL # (test code = NT#) 4.1 X10(3) 1.7-7.7 N IMMATURE GRANULOCYTE # (test 0.02 X10(3)uL 0.00-0.03 N code = IG#) LYMPHOCYTE # (test code = LY#) 1.6 X10(3) 1.0-4.8 N MONOCYTE # (test code = MO#) 0.4 X10(3) 0.0-0.89 N EOSINOPHIL # (test code = EO#) 0.3 X10(3) 0.0-0.6 N BASOPHIL # (test code = BA#) 0.0 X10(3) 0.0-0.2 N RBC MORPHOLOGY REQUIRED (test NO NORMAL code = RBCM)
[2022-10-09 11:31] LABS: Absolute Lymphocytes (CBC) 0.8 K/uL (0.7-4.9); Hematocrit 32.9 % (36.0-45.0); Lymphocytes % 14.7 % (15.3-44.8); MCV 83.2 fL (80-100); RBC Red Blood Cell Count 3.95 M/uL (3.86-4.86)
[2022-10-09] MEDS ORDERED: IBUPROFEN 400 MG TAB ONE (12:09)
[2022-10-09] MEDS ORDERED: IBUPROFEN 200 MG TAB PO ONE (12:09)
[2022-10-09 12:46] LABS: Albumin 2.7 g/dL (3.4-5.0); Bilirubin Total 0.4 mg/dL (0.2-1.0); Protein, Total 6.6 g/dL (6.4-8.2)
--- NOTE | 2022-10-09 13:04 | EDPHYS ---
Physician Documentation [facility] Name: Sarah Lim Age: 87 yrs Sex: Female : 1935 Arrival Date: 10/09/2022 Time: 10:58 Bed 8 Private MD: JEF LARSON ED Physician Brandon Mott HPI: 10/09 11:10 This 87 yrs old Female presents to ER via Unassigned with complaints of Cough, bs3 Chest Congestion, covid+. 11:10 Symptoms started on Tuesday cough has been persistent and therefore they came in she bs3 has had 3 vaccines no significant shortness of breath she is drinking lots of water. Historical: - Allergies: 11:16 No Known Allergies; kr3 - PMHx: 11:16 Diabetes mellitus; Hypertensive disorder; Dementia; Hypercholesterolemia; kr3 - PSHx: 11:22 Cholecystectomy; Total abdominal hysterectomy; hernia repair; kr3 - Immunization history:: Adult Immunizations up to date. - Social history:: Smoking status: Patient denies any tobacco usage or history of. ROS: 11:10 Constitutional: Positive for fever bs3 11:10 All other systems are negative. Exam: 11:10 Constitutional: This is a well developed, well nourished patient who is awake, alert, bs3 and in no acute distress. Head/Face: Normocephalic, atraumatic. Eyes: Pupils equal round and reactive to light, extra-ocular motions intact. Lids and lashes normal. ENT: mmm, no posterior phyarngeal erythema Chest/axilla: Normal chest wall appearance and motion. Nontender with no deformity. No lesions are appreciated. Cardiovascular: Regular rate and rhythm with a normal S1 and S2. symmetric pulses in upper extremities Respiratory: Lungs have equal breath sounds bilaterally, clear to auscultation, no respiratory distress Abdomen/GI: Soft, non-tender, no rebound or guarding Skin: Warm, dry with normal turgor. Normal color with no rashes, no lesions, and no evidence of cellulitis. MS/ Extremity: Pulses equal, no cyanosis. Neurovascular intact. Full, normal range of motion. Neuro: Awake and alert, GCS 15, oriented to person, place, time, and situation. Cranial nerves II-XII grossly intact. Motor strength 5/5 in all extremities. Sensory grossly intact. Psych: Awake, alert, with orientation to person, place and time. Behavior, mood, and affect are within normal limits. Vital Signs: 11:11 BP 131 / 55; Pulse 82; Resp 20; Temp 101.6; Pulse Ox 99% on R/A; Weight 62.6 kg; Height kr3 5 ft. 0 in. ; 12:02 Temp 103(O); kr3 12:02 BP 137 / 50; Pulse 76; Resp 20; Pulse Ox 97% on R/A; kr3 11:11 Body Mass Index 26.95 (62.60 kg, 152.4 cm) kr3 MDM: 11:01 Patient medically screened. bs3 11:10 Differential Diagnosis: Other Patient with upper respiratory infection likely secondary bs3 to COVID she has no hypoxia here her symptoms are within 4 days of onset recommended Paxlovid for prevention given her age diabetes hypertension hyperlipidemia family agreed Will screen for liver/renal pathology. Data reviewed: vital signs, nurses notes. 11:50 ED course: Discussed with patient and daughter at bedside recommended to discontinue bs3 atorvastatin for 8 days recommended to check glucose every 6-8 hours and discontinue tramadol recommended to consider decreasing the dose of repaglinide. 13:03 ED course: gfr below 60 will redose paxlovid based on gfr. bs3 10/09 11:11 Order name: CBC with Diff; Complete Time: 11:59 bs3 10/09 11:11 Order name: CMP; Complete Time: 13:02 bs3 10/09 13:03 Interpretation: Abnormal. bs3 Administered Medications: 11:25 Drug: Acetaminophen PO 1000 mg Route: PO; kr3 11:25 Drug: NS 0.9% IV 500 ml Route: IV; Rate: bolus; Site: right antecubital; kr3 12:09 Drug: Ibuprofen PO 600 mg Route: PO; kr3 Disposition Summary: 10/09/22 13:04 Discharge Ordered Location: Home bs3 Problem: new bs3 Symptoms: have improved bs3 Condition: Fair bs3 Diagnosis - Acute upper respiratory infection, unspecified bs3 Followup: bs3 - With: JEF LARSON - When: 2 - 3 days - Reason: Re-evaluation by your physician Discharge Instructions: - Discharge Summary Sheet bs3 - COVID-19 bs3 Forms: - Medication Reconciliation Form bs3 - Thank You Letter bs3 - Antibiotic Education bs3 - Prescription Opioid Use bs3 Prescriptions: - Paxlovid (EUA) 300 mg (150 mg x 2)-100 mg Oral Tablet, Dose Pack - take 1 dose pack by ORAL route as directed on dose pack take TWO 150 mg tablets bs3 of nirmatrelvir with ONE 100 mg tablet of ritonavir twice daily for 5 days; 1 Blister; Refills: 0, Product Selection Permitted Signatures: Dispatcher [employer] Martita Hernandez RN RN kr3 Brandon Mott MD MD bs3
--- NOTE | 2022-10-09 13:04 | ER ---
Nurse's Notes [facility] Name: Sarah Lim Age: 87 yrs Sex: Female : 1935 Arrival Date: 10/09/2022 Time: 10:58 Bed 8 Private MD: JEF LARSON Diagnosis: Acute upper respiratory infection, unspecified Presentation: 10/09 11:11 Chief complaint: Patient's son or daughter states: had cough and congestion x 5 days kr3 and tested covid +, symptoms have worsenede over the last 24 hours. Coronavirus screen: Vaccine status: Patient reports receiving the 2nd dose of the covid vaccine. Ebola Screen: Patient denies travel to an Ebola-affected area in the 21 days before illness onset. Initial Sepsis Screen: Does the patient meet any 2 criteria? No. Patient's initial sepsis screen is negative. Does the patient have a suspected source of infection? No. Patient's initial sepsis screen is negative. Risk Assessment: Do you want to hurt yourself or someone else? Patient reports no desire to harm self or others. Onset of symptoms was October 04, 2022. 11:11 Method Of Arrival: EMS kr3 11:11 Acuity: KATIE 3 kr3 Triage Assessment: 11:15 General: Appears in no apparent distress. uncomfortable, ill, Behavior is calm, kr3 cooperative, appropriate for age. EENT: Reports nasal congestion. Neuro: Level of Consciousness is awake, alert, obeys commands, Oriented to person, place, time, situation. Cardiovascular: Patient's skin is warm and dry. Respiratory: Airway is patent Respiratory effort is even, unlabored, Respiratory pattern is regular, agonal. GI: Abdomen is round non-distended. : No signs and/or symptoms were reported regarding the genitourinary system. Derm: No signs and/or symptoms reported regarding the dermatologic system. Musculoskeletal: Circulation, motion, and sensation intact. Historical: - Allergies: 11:16 No Known Allergies; kr3 - PMHx: 11:16 Diabetes mellitus; Hypertensive disorder; Dementia; Hypercholesterolemia; kr3 - PSHx: 11:22 Cholecystectomy; Total abdominal hysterectomy; hernia repair; kr3 - Immunization history:: Adult Immunizations up to date. - Social history:: Smoking status: Patient denies any tobacco usage or history of. Assessment: 12:02 Reassessment: No changes from previously documented assessment. Patient and/or family kr3 updated on plan of care and expected duration. Pain level reassessed. Patient is alert, oriented x 3, equal unlabored respirations, skin warm/dry/pink. Patient states symptoms have not improved. Vital Signs: 11:11 BP 131 / 55; Pulse 82; Resp 20; Temp 101.6; Pulse Ox 99% on R/A; Weight 62.6 kg; Height kr3 5 ft. 0 in. ; 12:02 Temp 103(O); kr3 12:02 BP 137 / 50; Pulse 76; Resp 20; Pulse Ox 97% on R/A; kr3 11:11 Body Mass Index 26.95 (62.60 kg, 152.4 cm) kr3 ED Course: 10:58 Patient arrived in ED. am2 10:59 JEF LARSON is Private Physician. am2 11:01 Brandon Mott MD is Attending Physician. bs3 11:01 Arm band placed on Patient placed in an exam room, on a stretcher. ll1 11:08 Patient has correct armband on for positive identification. Placed in gown. Bed in low mm9 position. Call light in reach. Side rails up X 1. Adult w/ patient. monitoring and evaluation advisor on. Pulse ox on. NIBP on. 11:11 Martita Wisdom RN is Primary Nurse. kr3 11:15 Triage completed. kr3 11:21 Inserted saline lock: 20 gauge in right antecubital area, using aseptic technique. hb Blood collected. 11:51 Repeat lab(s) drawn. by ar, sent to lab. mm9 13:03 JEF LARSON is Referral Physician. bs3 Administered Medications: 11:25 Drug: Acetaminophen PO 1000 mg Route: PO; kr3 11:25 Drug: NS 0.9% IV 500 ml Route: IV; Rate: bolus; Site: right antecubital; kr3 12:09 Drug: Ibuprofen PO 600 mg Route: PO; kr3 Outcome: 13:04 Discharge ordered by . bs3 Signatures: Shakira Ellison RN RN Martine Block am2 Ashli Rm RN RN ll1 Martita Wisdom RN RN kr3 Brandon Mott MD MD bs3 Felipa Fields mm9
[2022-10-09 16:22] VITALS: TEMP 99.4
== END 2022-10-09 13:35 | disposition home or self-care (01) ==
LOC: ER 10:58
DX: J06.9 Acute upper respiratory infection, unspecified (principal); I10 Essential (primary) hypertension; E11.9 Type 2 diabetes mellitus without complications; F03.90 Unspecified dementia, unspecified severity, without behavioral disturbance, psychotic disturbance, mood disturbance, and anxiety; Z20.822 Contact with and (suspected) exposure to COVID-19
CPT/HCPCS: 36415; 80053; 85025; 96360; 96361; 99284